=== PATIENT | male | born 1935 | race Caucasian/White ===

== ENCOUNTER 2022-01-22 11:25 | Emergency (ER) | payer OTHER ==
[~2022-01-22 11:25] MED LIST: COSOPT EYE DROP10 ML EYEBOTH; GLUCOSAMINE HCL; NORVASC5 MG PO; XALATAN2.5 ML OU; ZANTAC150 MG PO; [UNRECOGNIZED DRUG - OTHER]; lisinopril/hctz PO
[2022-01-22 12:36] LABS: BASOPHIL 0.2 % (0-2); EOSINOPHIL 2.4 % (0-7); HCT 23.7 % (42.0-52.0); HGB 7.3 g/dl (13.2-18.0); LYMPHOCYTE 8.6 % (15-48); MCH 28.7 pg (25.0-31.0); MCHC 30.8 g/dL (32.0-36.0); MCV 93.3 fL (78.0-100.0); MPV 11.4 fL (6.0-9.5); NEUTROPHIL 81.5 % (41-80); NRBC 0; PLT 243 K/uL (150-400); RBC 2.54 M/uL (4.70-6.00); RDW 13.6 % (11.5-14.0); WBC 8.7 K/uL (4.0-10.5)
[2022-01-22 12:39] LABS: INR 1.13 (0.9-1.2); PROTHROMBIN TIME 13.9 SECONDS (11.8-13.4); PTT 33.9 SECONDS (24.4-34.7)
[2022-01-22 12:59] LABS: BILIRUBIN - TOTAL 0.2 mg/dL (0.2-1.0); BUN/CREAT RATIO (CALC) 11.1 RATIO; CREATININE 1.44 mg/dL (0.67-1.17); GLOBULIN (CALCULATION) 3.4 g/dL; POTASSIUM 4.6 mmol/L (3.5-5.1); TOTAL PROTEIN 6.4 g/dL (6.4-8.2)
== END 2022-01-22 13:56 | disposition other institution (70) ==
LOC: FER 11:25
PROVIDERS: Emergency Medicine
DX: K92.1 Melena (principal); R57.1 Hypovolemic shock; Z88.5 Allergy status to narcotic agent; Z88.8 Allergy status to other drugs, medicaments and biological substances; Z20.822 Contact with and (suspected) exposure to COVID-19
CPT/HCPCS: 36415; 71045; 80053; 82553; 84484; 85025; 85610; 85730; 86850; 86900; 86901; 86922; 93005; C9113; J7030; U0002